=== PATIENT | male | born 1995 | race Caucasian/White ===

== ENCOUNTER 2016-11-06 12:29 | Emergency (ER) | payer OTHER ==
[2016-11-06] MEDS ORDERED: IBUPROFEN 800 MG TABLET PO STA (13:03)
[2016-11-06] MEDS ORDERED: IBUPROFEN 800 MG TABLET PO ONE (13:05)
--- NOTE | 2016-11-06 13:25 | ED Physician Documentation ---
PD HPI LOWER EXT INJURY - Stated complaint Stated Complaint: FOOT INJURY - Chief complaint Chief Complaint: Trauma Ext - History obtained from History obtained from: Patient - History of Present Illness PD HPI LOW EXT INJURY LOCATION: Right, Foot Type of injury: Blunt / blow Where injury occurred: Work Timing - onset: Last night Worsened by: Palpating, Other (Weightbearing.) Associated symptoms: Swelling Similar symptoms before: Has not had sx before - Additional information Additional information: The patient is a 21-year-old male who was at work last night when he dropped a metal object weighing about 70 pounds onto his right foot. He has been ambulating since that time, but describes pain with weightbearing. When he removed his shoe this morning he realized how swollen his foot is. He denies any other injuries. Review of Systems Constitutional: denies: Fever Respiratory: denies: Cough Musculoskeletal: reports: Extremity pain (Right foot.) Neurologic: denies: Focal weakness, Numbness PD PAST MEDICAL HISTORY - Past Medical History Musculoskeletal: None - Past Surgical History Past Surgical History: No - Present Medications Home Medications: Ambulatory Orders Medication Instructions Recorded Confirmed HYDROcod/ACETAM 5/325 [Vicodin 1 - 2 ea PO Q6H PRN #20 tablet 11/06/16 5/325] Ibuprofen 800 mg PO TID PRN #30 tablet 11/06/16 - Allergies Allergies/Adverse Reactions: Allergies Allergy/AdvReac Type Severity Reaction Status Date / Time No Known Drug Allergies Allergy Verified 02/02/16 08:34 - Social History Does the pt smoke?: No Smoking Status: Former smoker Does the pt drink ETOH?: No Does the pt have substance abuse?: No - Immunizations Immunizations are current?: Yes PD ED PE NORMAL - Vitals Vital signs reviewed: Yes (Initially hypertensive.) - General General: Alert and oriented X 3, Well developed/nourished - HEENT HEENT: Atraumatic - Respiratory Respiratory: No respiratory distress - Derm Derm: No rash - Extremities Extremities: No calf tenderness / cord, Other (There is swelling across the dorsum of the right foot, with faint ecchymosis, and associated tenderness to palpation on the dorsum of the foot. There is no tenderness with palpation on the plantar aspect of the foot, and no tenderness with axial loading the toes. Distal neurovascular is intact.) - Neuro Neuro: Alert and oriented X 3, No motor deficit, No sensory deficit Results - Vitals Vitals: Oxygen O2 Source Room air - Rads (name of study) Right foot Radiology: Prelim report reviewed, EMP read contemporaneously, See rad report ( Dorsomedial soft tissue swelling without evidence of fracture.) PD MEDICAL DECISION MAKING - ED course Complexity details: reviewed results, re-evaluated patient, considered differential, d/w patient ED course: The patient's presentation is significant for contusion to the right foot. X- ray reveals no evidence of bony abnormality. Treatment in the emergency department included administration of ibuprofen, 800 mg orally. He is being discharged with prescription for Vicodin, 20 tablets. I discussed with him the expected course of injury, symptomatic treatment and outpatient follow-up, as well as potentially worrisome signs or symptoms that should prompt reevaluation in the emergency department. Departure - Departure Disposition: 01 Home, Self Care Clinical Impression: Contusion of right foot Qualifiers: Encounter type: initial encounter Qualified Code(s): S90.31XA - Contusion of right foot, initial encounter Condition: Stable Instructions: ED Contusion Foot Follow-Up: [facility]roc[facility] [Provider Group] Prescriptions: Ibuprofen 800 mg PO TID PRN #30 tablet PRN Reason: Pain HYDROcod/ACETAM 5/325 [Vicodin 5/325] 1 - 2 ea PO Q6H PRN #20 tablet PRN Reason: Pain Comments: Keep your right foot elevated as much of the time as possible for the next 3 or 4 days. Apply icepack to your right foot intermittently for the next 3 or 4 days. You can use ibuprofen, up to 800 mg 3 times daily for its anti-inflammatory effect. You can use Vicodin as prescribed if needed for pain. Follow up with your primary physician within one to 2 weeks. Call to schedule an appointment. Return to the emergency department if you develop markedly increasing pain, or otherwise worsening symptoms. Forms: Activity restrictions Discharge Date/Time: 11/06/16 14:50
--- NOTE | 2016-11-06 13:46 | XRAY Preliminary Report ---
Exam: XR Foot 3 View RT IMPRESSION: Dorsomedial soft tissue swelling without evidence of fracture. [facility] SITE ID: [id number]
--- NOTE | 2016-11-06 13:48 | XRAY Report ---
EXAM: Right Foot Radiography EXAM DATE: 11/06/2016 01:04 PM. CLINICAL HISTORY: Pain with movement. COMPARISON: None. TECHNIQUE: 3 views. FINDINGS: Bones: [place] versus likely congenital spurring at the dorsal tarsometatarsal joints. No acute fract ure. Joints: Normal. No subluxations. Soft Tissues: Dorsomedial soft tissue swelling. IMPRESSION: Dorsomedial soft tissue swelling without evidence of fracture. [facility] Referring Provider Line: [phone] SITE ID: [id number]
[2016-11-06 14:50] VITALS: BP 133/92
== END 2016-11-06 14:50 | disposition home or self-care (01) ==
LOC: ED 12:29
DX: S90.31XA Contusion of right foot, initial encounter (principal); W20.8XXA Other cause of strike by thrown, projected or falling object, initial encounter
CPT/HCPCS: 73630; 99283; A9270

== ENCOUNTER 2020-05-16 13:45 | Outpatient (CLI) | payer OTHER | END 2020-05-16 13:46 | disposition home or self-care (01) | LOC: COV 13:45 | PROVIDERS: ATTEND Family Medicine | DX: Z20.828 Contact with and (suspected) exposure to other viral communicable diseases (principal) ==

== ENCOUNTER 2022-04-22 08:42 | Outpatient (CLI) | payer OTHER ==
[2022-04-22 09:35] VITALS: BP 117/77
--- NOTE | 2022-04-22 09:35 | SLEEP CARE CONSULTATION ---
Information from patient questionnaire entered by Abi Ziegler MA. I have reviewed and concur with the information entered by Abi Ziegler MA. This document represents the service I personally performed and the decisions made by me, Li Oleary ARNP. History of Present Illness Service Date and Time: 04/22/2022 0842 Reason for Visit: New patient (ONSET 09/27/2021 NO PRIORS,) Chief Complaint: reports: Unrefreshed sleep, Snoring, Excessive daytime sleepin ess, Observed pauses in breathing, Fatigue, Frequent awakenings at night Date of Onset: 6 MONTHS Usual bedtime: 800 PM Time it takes to fall asleep: 10-15 MINUTES Snores at night: Yes Observed to quit breathing while asleep: Yes Sleeps alone due to snoring: No Number of times waking at night: 1-2 Reasons for waking at night: reports: Choking, Snoring, Gasping for air, Other (noise) Toss, Turn, or Twitch while sleeping: Yes Recalls having dreams: Yes (occasionally) Usually gets out of bed at: 0300 Feels refreshed in the morning: No Morning headache: No Sleepy or fatigued during the day: Yes Ever fallen asleep while driving: No (sometimes) Takes day naps: Yes (3-4 days a week; last about 1-2 hours; wkds both days) Dreams during day naps: No Prior sleep studies: No Additional HPI information: I had the pleasure of seeing MAYA RAMSEY today regarding the possibility of him having a sleep disorder. His current complaints are Unrefreshed sleep, Snoring, Excessive daytime sleepiness, Observed pauses in breathing, Fatigue, and Frequent awakenings at night. He states he it tired all the time. His has told him that he snores loudly and he has pauses in breathing with choking sounds. He states he has noticed that while falling asleep his tongue will fall back against back of throat and he feels like he can't breathe. He states he started on testosterone therapy about a year ago. This has caused weight gain after working out at gym and he noticed more sleeping issues in last 6 months. He works out at gym at least 6 days a week and goes to therapy twice a week to control depression. It is well controlled this way. 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 Patient is Single and lives in [place]. Have you smoked in the past 12 months: No Cigarettes per day (20/pack): 20 Years of smokin Quit date: 2013 Smoking Pack Years: 3.0 Alcohol use: No Caffeine use: Yes Caffeine amount and frequency: 2 X WEEKLY Family History Family history of sleep disordered breathing: Yes Family Hx Sleep Apnea: Mother: Snoring, Father: Snoring Allergies and Home Medications Known drug allergies: No Drug allergies reviewed: Yes (NKDA) Home medication list reviewed: Yes Allergy and home medication list: Allergies No Known Drug Allergies Allergy (Verified 02/02/16 08:34) Medications: Testosterone Loratidine Adderall, prn Review of Systems Weight gain over past 5 years: 35 lbs Respiratory: reports: shortness of breath Gastrointestinal: reports: difficulty swallowing (occ hard to swallow when at end of mealtime since 11 yo) Neurological: denies: head trauma Psychiatric: reports: Attention Deficit Hyperactivity, anxiety, depression Ear/Nose/Throat: reports: nasal congestion, sinus problems, dry mouth/throat (occasional, 1-2 days a week), wisdom teeth removed. denies: injury to nose, tonsillectomy Endocrine: denies: thyroid disease Immunologic: reports: sneezing, allergies to food or environment (lllllll) Physical Exam Vital signs obtained and entered by: JENNY BARAKAT Blood Pressure: 117/77 (RESP 18, PULSE 72, RIGHT, ) Heart Rate: 72 O2 Saturation: 98 Height: 5 ft 9 in Weight: 207 lb (CLOTHES) Weight change since last visit: MAINTAINING WEIGHT GYM AND THERAPY FOR DEPRESSION, Body Mass Index: 30.5 BMI Classification: Obese Neck circumference: 15.5 (INCHES) Mouth and throat: narrow oropharynx Soft palate: long Hard palate: normal Uvula: normal Uvula visualization: 25% Mallampati Class III Tongue: enlarged in size with teeth archer on lateral edges Tonsils: small Neck: normal w/o lymphadenopathy or thyromegaly Heart: regular rate and rhythm Lungs: clear bilaterally Impression and Plan 1. Suspected Obstructive Sleep Apnea-Hypopnea Syndrome, as suggested by a history of loud and irregular snoring, observed cessation of breath while asleep, gasping or choking in sleep, frequent awakening during the night, unrefreshed sleep, cognitive impairment, and excessive daytime sleepiness. Narrow oropharynx and obesity are common predisposing factors for obstructive sleep apnea-hypopnea syndrome. I recommend proceeding to polysomnography to co nfirm the diagnosis and to assess severity. If the patient has significant sleep disordered breathing, a manual CPAP titration study will also be performed to find the optimal treatment pressure. I informed the patient of what the sleep studies involve and after some discussion, obtained agreement to proceed. The pathophysiology of obstructive sleep apnea-hypopnea syndrome was discussed with the patient and health risks of cardiovascular and cerebrovascular disease if not treated. Risks of drowsy driving discussed in detail and patient advised to avoid long distance driving and to pot puller at the first sign of drowsiness. Patient agreed to plan. * Schedule polysomnography * Avoid long distance driving or driving when feeling sleepy. * Avoid alcohol, sedative and muscle relaxant around bedtime. * Attempt to lose weight. * Review instructions provided by trained office staff on how to prepare for the sleep study. * Return for follow-up after sleep study completed. Counseling Topics: Weight loss health impact Visit Type: In Office Time Spent with Patient (minutes): 31 Provider Statement: I spent 100% of the Face to Face Visit with the patient with greater than 50% spent counseling the patient and coordination of care.
== END 2022-04-22 08:43 | disposition home or self-care (01) ==
LOC: SC 08:42
PROVIDERS: ATTEND Nurse Practitioner Family
DX: G47.10 Hypersomnia, unspecified (principal); G47.8 Other sleep disorders; R06.83 Snoring; R06.81 Apnea, not elsewhere classified; F32.A Depression, unspecified; Z87.891 Personal history of nicotine dependence; E66.9 Obesity, unspecified; Z68.30 Body mass index [BMI] 30.0-30.9, adult
CPT/HCPCS: 99203; 99212

== ENCOUNTER 2022-07-17 08:21 | Outpatient (CLI) | payer OTHER ==
[2022-07-17 08:50] VITALS: BP 160/100
--- NOTE | 2022-07-17 08:50 | SLEEP CARE CONSULTATION ---
Information from patient questionnaire entered by Geovany Loomis. I have reviewed and concur with the information entered by Geovany Loomis. This document represents the service I personally performed and the decisions made by , Li Oleary ARNP. History of Present Illness Service Date and Time: 07/17/2022 08 Previous diagnosis: Mild, Obstructive Sleep Apnea-Hypopnea Syndrome AHI: 5.8 (in 2021) Reason for follow up: first compliance Equipment type: CPAP (Resmed) Equipment obtained from: Other ([facility]) Mask style: Nasal (medium) Backup mask available: No (will keep old mask when replaced) Prior sleep studies: No Type of Sleep Study: Home sleep study (F/U HST, 05/05/2022 [facility], [facility]) HPI additional information: MAYA RAMSEY was diagnosed to have mild, AHI 5.8, obstructive sleep apnea- hypopnea syndrome and returned today for CPAP therapy first compliance follow- up. Sleep Study - Results Type of Sleep Study: Home sleep study (F/U HST, 05/05/2022 [facility], POS) Prior sleep studies: No CPAP Compliance Data - Data Reviewed with Patient Average duration of nightly device use: 6 hrs 30 min Compliance rate %: 100 (06/15/2022-07/14/2022; 30/ days used) Current pressure setting (cmH2O): 9-11 Average residual AHI: 1.6 Central apnea: 0.6 Obstructive apnea: 0.6 Subjective Patient concerns: reports: mask leak noise (occasional leak). denies: aerophagia, mask discomfort, air blowing in eyes, condensation in mask/hose, nasal congestion, dry mouth, nose, throat, epistaxis Observed to snore while using device: No Current pressure setting perceived as: comfortable On therapy, patient: reports: sleeping better, awakening more refreshed, being more awake and alert during the day, more rested overall. denies: drowsiness while driving Initial [place] Sleepiness Scale score: 16 (04/22/22) Current [place] Sleepiness Scale score: 4 (07/17/2022) Allergies and Home Medications Drug allergies reviewed: Yes (nkda) Home medication list reviewed: Yes (no changes) Review of Systems Review of systems same as previous: Yes (no changes) Physical Exam Vital signs obtained and entered by: GEOVANY Gonzáles MA Blood Pressure: 160/100 (Left Arm; retake 138/90) Cuff size: regular (pt said he had pre work out before the gym this morning) Heart Rate: 94 O2 Saturation: 96 Height: 5 ft 9 in Weight: 220 lb 3.2 oz Body Mass Index: 32.5 BMI Classification: Obese Impression and Plan 1. Obstructive Sleep Apnea-Hypopnea Syndrome, mild, with good treatment compliance and good apnea control. On CPAP therapy, the patient has better sleep quality and is more rested overall. Patient made an adjustment of the pressure on his own and I cautioned him against adjusting the pressure on his own. The current pressure is doing well at 9-11 cmH2O. Patient's apnea severity and rationale for treatment to reduce apnea, improve sleep quality and reduce cardiovascular and cerebrovascular events was reviewed. I also reviewed the benefit of consistent device use of CPAP for depression, anxiety and attention deficit. 2. Obesity, unspecified. Currently patients BMI is 32.5. Obesity increases the risk of apnea, CPAP pressure requirements and overall health risks especially cardiovascular and diabetes. Thus patient is advised to continue to try to lose weight. Patient is trying to improve his health with regular exercise. 3. Elevated blood pressure. Patient had an elevated blood pressure reading of 160/100 initially at his appointment. He had a "preworkout" drink this morning but otherwise does not know why it is high. He denied chest pain, shortness of breath, headaches or dizziness. At the end of appointment, his pressure was retaken and was 138/90. He left the office in stable condition. He will follow up with PCP as needed. * Continue auto CPAP pressure at 9-11 cmH2O * Notify me if snoring with mask or feeling that the pressure is too much or too little * Attempt to lose weight * Call this office if any problems using CPAP * Return for follow up in 3 months, or sooner if concerns arise Counseling Topics: Spare mask, Weight loss health impact Visit Type: In Office Time Spent with Patient (minutes): 20 Provider Statement: I spent 100% of the Face to Face Visit with the patient with greater than 50% spent counseling the patient and coordination of care.
== END 2022-07-17 08:22 | disposition home or self-care (01) ==
LOC: SC 08:21
PROVIDERS: ATTEND Nurse Practitioner Family
DX: G47.33 Obstructive sleep apnea (adult) (pediatric) (principal); E66.9 Obesity, unspecified; Z68.32 Body mass index [BMI] 32.0-32.9, adult; R03.0 Elevated blood-pressure reading, without diagnosis of hypertension
CPT/HCPCS: 99212; 99213

== ENCOUNTER 2022-10-16 08:18 | Outpatient (CLI) | payer OTHER ==
[2022-10-16 08:59] VITALS: BP 168/120
--- NOTE | 2022-10-16 08:59 | SLEEP CARE CONSULTATION ---
Information from patient questionnaire entered by Geovany Loomis. I have reviewed and concur with the information entered by Geovany Loomis. This document represents the service I personally performed and the decisions made by me, Li Oleary ARNP. History of Present Illness Service Date and Time: 10/16/2022 08 Previous diagnosis: Mild, Obstructive Sleep Apnea-Hypopnea Syndrome AHI: 5.8 (in 2021) Reason for follow up: three month (F/U) Equipment type: CPAP (RESMED Airsense 11) Equipment obtained from: Other ([facility]; getting supplies) Mask style: Nasal pillows Backup mask available: Yes (old mask) Last cushion change: 3 months or more Prior sleep studies: No Type of Sleep Study: Home sleep study (F/U HST, 05/05/2022 [facility], POS) HPI additional information: MAYA RAMSEY was diagnosed to have mild, AHI 5.8, obstructive sleep apnea- hypopnea syndrome and returned today for CPAP therapy three month follow-up. Sleep Study - Results Type of Sleep Study: Home sleep study (F/U HST, 05/05/2022 [facility], POS) Prior sleep studies: No CPAP Compliance Data - Data Reviewed with Patient Average duration of nightly device use: 6 HRS 45 MIN Compliance rate %: 99 (06/27/22-10/14/22) Current pressure setting (cmH2O): 9-11 Average residual AHI: 1.7 Central apnea: 0.8 Obstructive apnea: 0.3 Subjective Patient concerns: denies: aerophagia, mask discomfort, air blowing in eyes, mask leak noise, condensation in mask/hose, nasal congestion, dry mouth, nose, throat, epistaxis Observed to snore while using device: No Current pressure setting perceived as: comfortable On therapy, patient: reports: sleeping better, awakening more refreshed, being more awake and alert during the day, more rested overall. denies: drowsiness while driving Initial [place] Sleepiness Scale score: 16 (04/22/22) Current [place] Sleepiness Scale score: 3 (10/16/2022) Allergies and Home Medications Drug allergies reviewed: Yes (NKDA) Home medication list reviewed: Yes (no changes) Review of Systems Review of systems same as previous: Yes (no changes) Physical Exam Vital signs obtained and entered by: GEOVANY Gonzáles MA Blood Pressure: 168/120 (LEFT ARM ) Cuff size: regular Heart Rate: 105 O2 Saturation: 97 Height: 5 ft 9 in Weight: 222 lb Weight change since last visit: 2 lb gain Body Mass Index: 32.8 BMI Classification: Obese Impression and Plan 1. Obstructive Sleep Apnea-Hypopnea Syndrome, mild, with good treatment compliance and good apnea control. On CPAP therapy, the patient has better sleep quality and is more rested overall. Patient has significant improvement of their sleep apnea and are satisfied with current CPAP therapy. He is doing very well and is getting comfortable with his therapy. Patient denies problems with oral dryness, nasal congestion, epistaxis, skin irritation or aerophagia. Patient's apnea severity and rationale for treatment to reduce apnea, improve sleep quality and reduce cardiovascular and cerebrovascular events was reviewed. I also reviewed the benefit of consistent device use of CPAP for depression, anxiety and attention deficit. 2. Obesity, unspecified. Currently patients BMI is 32.8. Patient is very muscular and working out daily. Obesity increases the risk of apnea, CPAP pressure requirements and overall health risks especially cardiovascular and diabetes. Thus patient is advised to maintain a healthy weight. 3. Elevated blood pressure reading in office. His initial measurement was 168/120 with regular cuff. We retook his blood pressure and found it to be 162/100 with regular cuff, 150/100 with large cuff. He did take a pre-workout drink but states he halved the caffeine dose. He was advised to stop using the pre-workout and to monitor his blood pressure at home. If it continues to be high then he was advised to see his primary care provider for further evaluation and treatment as needed. He denied chest pain, shortness of breath, headaches or dizziness. He voiced understanding. * Continue auto CPAP pressure at 9-11 cmH2O * Notify me if snoring with mask or feeling that the pressure is too much or too little * Attempt to lose weight * Call this office if any problems using CPAP * Return for follow up in 6 months, or sooner if concerns arise Counseling Topics: Spare mask, Weight loss health impact Follow up with: PCP Follow up recommended for: High blood pressure Visit Type: In Office Time Spent with Patient (minutes): 20 Provider Statement: I spent 100% of the Face to Face Visit with the patient with greater than 50% spent counseling the patient and coordination of care.
== END 2022-10-16 08:19 | disposition home or self-care (01) ==
LOC: SC 08:18
PROVIDERS: ATTEND Nurse Practitioner Family
DX: G47.33 Obstructive sleep apnea (adult) (pediatric) (principal); E66.9 Obesity, unspecified; Z68.32 Body mass index [BMI] 32.0-32.9, adult; R03.0 Elevated blood-pressure reading, without diagnosis of hypertension
CPT/HCPCS: 99212; 99213